=== PATIENT | female | born 1930 | race Caucasian/White ===

== ENCOUNTER 2017-10-01 09:14 | Inpatient (IN) | payer OTHER ==
[~2017-10-01] VITALS: Ht 157.5 cm; Wt 85.9 kg
--- NOTE | ~2017-10-01 | PROC ---
[address] [address] PROCEDURE REPORT Name: ANTHONY CHAVEZ Room: [address] IN .R.#: [id number] Admission: 10/01/17 Attend Phys: Dhaval Hillman MD Discharge: Date of : 31 Report #: [id number] THIS REPORT FOR: //name// For GI report, Please see the Provation report in Perceptive 7 content. By: 0653Medical Records Staff [facility] /ROSE
[~2017-10-01 09:14] MED LIST: FISH OIL 1,001000 M2 PO; GLUCOSAMINE HC500 MG PO; MACRODANTIN100 MG PO; MAXZIDE-25 MG1 EACH PO; MOBIC15 MG PO; MULTIPLE VITAM1 EAC2 PO; PHENERGAN 25 MG25 M1 PO; PRESERVISION T1 EACH PO; SYNTHROID125 MC1 PO
[2017-10-01 09:25] VITALS: BP 140/64
[2017-10-01] MEDS ORDERED: ASPIR 8181 MG PO (09:30)
[2017-10-01] MEDS ORDERED: DICLOFENAC SODI75 MG PO (09:31)
[2017-10-01] MEDS ORDERED: CALCIUM 600 +1 EAC1 PO (09:31)
[2017-10-01 09:50] LABS: HEMATOCRIT 24.1 % (37.0-47.0); HEMOGLOBIN 8.1 gm/dL (12.0-15.0); MCH 31.2 pg (26.0-34.0); MCHC 33.5 g/dL (28.0-37.0); MCV 93.1 fL (80.0-100.0); MPV 8.2 fl. (7.2-11.1); NUCLEATED RBCS 0 /100WBC; PLATELET COUNT* 315 thou/uL (150-400); RBC 2.59 mil/uL (4.20-5.00); RDW-CV 14.4 % (10.5-14.5); WBC 20.8 thou/uL (4.0-11.0)
[2017-10-01 09:59] LABS: CALCIUM 8.9 mg/dL (8.5-10.1); POTASSIUM 3.1 mmol/L (3.5-5.1)
[2017-10-01 10:01] LABS: APTT 23.9 Seconds (25.0-31.3); PROTIME 10.1 Seconds (9.20-11.50)
[2017-10-01 10:05] LABS: TOTAL BILIRUBIN 0.2 mg/dL (<0.1-1.0); TOTAL PROTEIN 6.5 g/dL (6.4-8.2); TROPONIN-I LEVEL 0.08 ng/mL (<0.06)
[2017-10-01 10:41] LABS: ABSOLUTE LYMPHOCYTES 2.9 thou/uL (0.8-5.3); ABSOLUTE MONOCYTES 1.2 thou/uL (0.0-1.2); ABSOLUTE NEUTROPHILS 16.6 thou/uL (1.6-8.1)
[2017-10-01 10:47] LABS: PLATELET ESTIMATE ADEQUATE
[2017-10-01 10:48] LABS: HYPOCHROMASIA Occasional; MACROCYTES Occasional; POLYCHROMASIA Occasional
[2017-10-01 11:56] LABS: URINE BILIRUBIN NEGATIVE (Negative); URINE BLOOD NEGATIVE (Negative); URINE CLARITY CLEAR; URINE COLOR STRAW; URINE GLUCOSE-RANDOM NEGATIVE (Negative); URINE KETONES NEGATIVE (Negative); URINE LEUKOCYTES-REFLEX TRACE (Negative); URINE NITRITE-REFLEX NEGATIVE (Negative); URINE PROTEIN NEGATIVE (Negative); URINE SPECIFIC GRAVITY <= 1.005 (1.005-1.030); URINE UROBILINOGEN 0.2 E.U./dl (0.2-1.0)
[2017-10-01 12:08] LABS: SQUAMOUS 4-10 Moderate /LPF (0-3); URINE RBC 0-2 Rare /HPF (0-2); URINE WBC-REFLEX 0-5 Rare /HPF (0-5)
[2017-10-01 12:09] LABS: BACTERIA-REFLEX 1-9 Few /HPF (None Seen); CASTS None Seen /LPF (None Seen); CRYSTALS None Seen /LPF (None Seen); MUCUS 0-3 Light strn/LPF (None Seen)
[2017-10-01 15:09] VITALS: BP 102/47
--- NOTE | 2017-10-01 16:20 | EKG ---
[place] [address] ELECTROCARDIOGRAM REPORT Name: ANTHONY CHAVEZ Room: [address] IN [facility].#: [id number] Admission: 10/01/17 Attend Phys: Dhaval Hillman MD Discharge: Date of : 31 Report #: [id number] THIS REPORT FOR: //name// [facility] ED Test Date: 2017-10-01 Test Time: 09:30:08 Pat Name: ANTHONY CHAVEZ Department: Room: Gender: F Netbackup Admin: Linda BARRIOS : 1930 Requested By: Oswaldo Khan Order Number: [id number] MD: Mike Corley Measurements Intervals [place] Rate: 90 P: 33 NM: 162 QRS: -18 QRSD: 139 T: 128 QT: 394 QTc: 482 Interpretive Statements Sinus rhythm Multiform ventricular premature complexes Left bundle branch block Compared to ECG 02/26/2015 22:53:53 Ventricular premature complex(es) now present Left bundle-branch block now present Sinus bradycardia no longer present Electronically Signed On 10-01-2017 16:20:37 CDT by Mike Corley [email or web address] <ELECTRONICALLY SIGNED> By: Mike Corley MD, [facility]ATED [facility] 10/01/17 1620 Miek Corley MD, [facility] /EPI
[2017-10-01 20:00] VITALS: BP 103/51
[2017-10-02] VITALS: BP 125/56
[2017-10-02 04:00] VITALS: BP 106/48
[2017-10-02 04:46] LABS: ABSOLUTE BASOPHILS 0.1 thou/uL (0.0-0.2); ABSOLUTE EOSINOPHILS 0.2 thou/uL (0.0-0.7); ABSOLUTE MONOCYTES 0.6 thou/uL (0.0-1.2); ABSOLUTE NEUTROPHILS 6.2 thou/uL (1.6-8.1); BASOPHILS 0.5 %; EOSINOPHILS 1.7 %; LYMPHOCYTES 30.3 %; MCHC 33.9 g/dL (28.0-37.0); MCV 94.5 fL (80.0-100.0); MONOCYTES 5.5 %; MPV 8.2 fl. (7.2-11.1); NUCLEATED RBCS 0 /100WBC; RDW-CV 14.8 % (10.5-14.5)
[2017-10-02 05:04] LABS: PLATELET COUNT* 193 thou/uL (150-400)
[2017-10-02 05:06] LABS: HEMOGLOBIN 5.8 gm/dL (12.0-15.0)
[2017-10-02 05:14] LABS: CALCIUM 7.6 mg/dL (8.5-10.1); CREATININE 0.9 mg/dL (0.6-1.3); POTASSIUM 3.4 mmol/L (3.5-5.1)
[2017-10-02 10:00] VITALS: BP 107/46; BP 114/55; BP 118/51; BP 119/49
--- NOTE | 2017-10-02 14:45 | EKG ---
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: : 1930 Requested By: Oswaldo Khan Order Number: [id number] MD: Ramon Peres Measurements Intervals [place] Rate: 86 P: 21 RI: 141 QRS: -21 QRSD: 130 T: 129 QT: 423 QTc: 506 Interpretive Statements Sinus rhythm Left bundle branch block Compared to ECG 10/01/2017 09:30:08 Ventricular premature complex(es) no longer present Electronically Signed On 10-02-2017 14:45:05 CDT by Ramon Peres [email or web address] <ELECTRONICALLY SIGNED> By: Ramon Peres MD, [facility] 10/02/17 1445 1629 1629 Ramon Peres MD, [facility] /EPI
[2017-10-02 14:46] LABS: HEMATOCRIT 21.7 % (37.0-47.0); HEMOGLOBIN 7.2 gm/dL (12.0-15.0); MCH 30.4 pg (26.0-34.0); MCHC 33.2 g/dL (28.0-37.0); MCV 91.5 fL (80.0-100.0); MPV 7.6 fl. (7.2-11.1); RBC 2.38 mil/uL (4.20-5.00); RDW-CV 16.3 % (10.5-14.5); WBC 7.6 thou/uL (4.0-11.0)
[2017-10-02 15:05] LABS: ALBUMIN 2.5 g/dL (3.4-5.0); CALCIUM 7.5 mg/dL (8.5-10.1); CREATININE 0.8 mg/dL (0.6-1.3); POTASSIUM 3.3 mmol/L (3.5-5.1); TOTAL BILIRUBIN 0.7 mg/dL (<0.1-1.0); TOTAL PROTEIN 5.1 g/dL (6.4-8.2)
[2017-10-02 15:16] VITALS: BP 100/52
[2017-10-02 20:00] VITALS: BP 123/53
[2017-10-03] VITALS (8 sets, daily range): BP systolic 110–155; BP diastolic 52–68
[2017-10-03 04:55] LABS: ABSOLUTE BASOPHILS 0.1 thou/uL (0.0-0.2); ABSOLUTE EOSINOPHILS 0.3 thou/uL (0.0-0.7); ABSOLUTE LYMPHOCYTES 2.2 thou/uL (0.8-5.3); ABSOLUTE MONOCYTES 0.4 thou/uL (0.0-1.2); ABSOLUTE NEUTROPHILS 4.1 thou/uL (1.6-8.1); BASOPHILS 0.8 %; HEMATOCRIT 21.4 % (37.0-47.0); HEMOGLOBIN 7.7 gm/dL (12.0-15.0); LYMPHOCYTES 31.3 %; MCH 32.8 pg (26.0-34.0); MCV 91.1 fL (80.0-100.0); MONOCYTES 5.5 %; NUCLEATED RBCS 0 /100WBC; PLATELET COUNT* 199 thou/uL (150-400); POLYS 58.4 %; RBC 2.35 mil/uL (4.20-5.00); RDW-CV 17.3 % (10.5-14.5); WBC 7.1 thou/uL (4.0-11.0)
[2017-10-03 05:05] LABS: PREALBUMIN 28.8 mg/dL (18.0-35.7)
[2017-10-03 05:08] LABS: ALBUMIN 2.4 g/dL (3.4-5.0); CALCIUM 7.4 mg/dL (8.5-10.1); CREATININE 0.8 mg/dL (0.6-1.3); POTASSIUM 3.5 mmol/L (3.5-5.1); TOTAL BILIRUBIN 0.4 mg/dL (<0.1-1.0); TOTAL PROTEIN 5.1 g/dL (6.4-8.2)
[2017-10-04] VITALS: BP 130/47
[2017-10-04 04:00] VITALS: BP 142/57
[2017-10-04 04:26] LABS: ABSOLUTE EOSINOPHILS 0.4 thou/uL (0.0-0.7); ABSOLUTE LYMPHOCYTES 2.5 thou/uL (0.8-5.3); ABSOLUTE MONOCYTES 0.4 thou/uL (0.0-1.2); ABSOLUTE NEUTROPHILS 4.6 thou/uL (1.6-8.1); BASOPHILS 0.5 %; EOSINOPHILS 4.5 %; HEMATOCRIT 23.4 % (37.0-47.0); HEMOGLOBIN 7.9 gm/dL (12.0-15.0); LYMPHOCYTES 31.6 %; MCHC 33.8 g/dL (28.0-37.0); MCV 91.6 fL (80.0-100.0); MONOCYTES 5.2 %; MPV 8.3 fl. (7.2-11.1); NUCLEATED RBCS 0 /100WBC; PLATELET COUNT* 243 thou/uL (150-400); POLYS 58.2 %; RBC 2.55 mil/uL (4.20-5.00); RDW-CV 16.6 % (10.5-14.5); WBC 7.8 thou/uL (4.0-11.0)
[2017-10-04 04:36] LABS: ALBUMIN 2.6 g/dL (3.4-5.0); CALCIUM 7.4 mg/dL (8.5-10.1); CREATININE 0.9 mg/dL (0.6-1.3); TOTAL BILIRUBIN 0.4 mg/dL (<0.1-1.0); TOTAL PROTEIN 5.7 g/dL (6.4-8.2)
[2017-10-04 04:41] LABS: PREALBUMIN 29.1 mg/dL (18.0-35.7)
[2017-10-04 05:02] LABS: POTASSIUM 2.9 mmol/L (3.5-5.1)
[2017-10-04 09:00] VITALS: BP 147/62
[2017-10-04] MEDS ORDERED: PROTONIX40 M1 PO (09:14)
[2017-10-04] MEDS ORDERED: ZANTAC 150MG T150 MG PO (09:23)
[2017-10-04 09:28] VITALS: BP 142/57
[2017-10-04 10:42] VITALS: BP 142/57
--- NOTE | 2017-10-15 08:22 | CON ---
[address] [address] CONSULTATION Name: ANTHONY CHAVEZ Room: [address] IN M.R.#: [id number] Admission: 10/01/17 Attend Phys: Dhaval Hillman MD Discharge: 10/04/17 Date of : 31 Report #: [id number] THIS REPORT FOR: //name// CC: Dhaval Aaron Davis DATE OF SERVICE: 10/02/2017 ADDENDUM I personally seen and examined the patient and reviewed labs and imaging. The patient who reports usage of NSAID, diclofenac presents with melanotic stool and hematemesis. Hemoglobin also was 5.8 and after transfusion it is 7.2. The patient is currently on IV Protonix. We will continue monitoring H and H and if it drops below 7, we will transfuse. We will schedule her for an upper endoscopy and make further recommendation after the scope. <ELECTRONICALLY SIGNED> By: Mariajose Whelan MD 10/15/17 0822 1930 0108Mariajose Whelan MD /nt
--- NOTE | 2017-10-15 08:22 | CON ---
[address] [address] CONSULTATION Name: ANTHONY CHAVEZ Room: [address]#: [id number] Admission: 10/01/17 Attend Phys: Dhaval Hillman MD Discharge: 10/04/17 Date of : 31 Report #: [id number] THIS REPORT FOR: //name// CC: Dhaval Davis DO DICTATED BY: Frances Samuel [facility] DATE OF SERVICE: 10/02/2017 PRIMARY CARE PHYSICIAN: Galen Davis DO Please note at the time of this dictation, the patient was seen and physically examined by myself. REASON FOR CONSULTATION: Melanotic stool and hematemesis. HISTORY OF THE PRESENT ILLNESS: This is an 87-year-old female who started having issues with nausea and vomiting in which she had an episode of vomiting that was black coffee ground material. She also then later noted that she had black stools. She had another episode yesterday morning prior to her coming to the hospital for further evaluation. The patient states that she has been taking diclofenac regularly for years for her arthritis and has not had any since her first episode of vomiting. The patient states she has had colonoscopies many years ago, but cannot remember when or where. ALLERGIES: SULFA. MEDICATIONS: From home include diclofenac, Caltrate, aspirin, multivitamin, fish oil, glucosamine, triamterene, levothyroxine, and Macrodantin. PAST MEDICAL HISTORY: Hypertension, arthritis. PAST SURGICAL HISTORY: Thyroid and carpal tunnel. FAMILY HISTORY: Negative for any GI or female cancers. SOCIAL HISTORY: Denies any alcohol, tobacco or illegal drug use. REVIEW OF SYSTEMS: Twelve-point review of systems is essentially negative except what is mentioned in the HPI. PHYSICAL EXAMINATION: VITAL SIGNS: Temperature 36.8, pulse 72, respirations 17, blood pressure 106/48[place] [address] CONSULTATION Name: ANTHONY CHAVEZ Room: [address]#: [id number] Admission: 10/01/17 Attend Phys: Dhaval Hillman MD Discharge: 10/04/17 Date of : 31 Report #: [id number] HEART: Regular rate and rhythm. LUNGS: Clear. ABDOMEN: Soft, positive bowel sounds in all 4 quadrants with no masses or tenderness noted. LABORATORY DATA: Hemoglobin on admission was 5.8, on admission, she was 8.1 and she has dropped down to 5.8 and she has received a unit of blood, hematocrit is 17, white count is 10, platelets 193. Sodium 143, potassium 3.4, chloride 109, CO2 of 26, BUN is 24, creatinine 0.2, GFR is 59, and glucose is 85. CT of the abdomen and pelvis shows colonic diverticulosis, otherwise negative. IMPRESSION: 1. Hematemesis. 2. Melanotic stool. 3. Acute anemia. 4. Chronic NSAID use. PLAN: 1. EGD either later today or tomorrow depending on the schedule. 2. If she does not have it today, she can have clear liquids. 3. CBC, CMP in the a.m. 4. Continue the Protonix IV b.i.d. and will also add a ferritin to her labs as well. Thank you for allowing us to participate in this patient's care. Please do not hesitate to call with any questions in regard to this consult. ADDENDUM I personally seen and examined the patient and reviewed labs and imaging. The patient who reports usage of NSAID, diclofenac presents with melanotic stool and hematemesis. Hemoglobin also was 5.8 and after transfusion it is 7.2. The patient is currently on IV Protonix. We will continue monitoring H and H and if it drops below 7, we will transfuse. We will schedule her for an upper endoscopy and make further recommendation after the scope. <ELECTRONICALLY SIGNED> By: Mariajose Whelan MD 10/15/17 0822 1346 [id number] Whelan MD /nt
--- NOTE | 2018-02-05 11:34 | PATH ---
[address] [address] PATHOLOGY RPT PROCEDURE Name: ANTHONY CHAVEZ Room: [address] IN M.R.#: [id number] Admission: 10/01/17 Date of : 31 Discharge: 10/04/17 Report #: [id number] Path Case #: [id number] [facility] Accession Number: [id number] . 01 Material submitted: . PART A: ANTRAL BIOPSY FOR H. PYLORI PART B: ESOPHAGEAL BIOPSY AT 36CM R/O KHAN'S . 02 Diagnosis: A. Antral biopsy (for H. 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 . B. Esophageal biopsy at 36 cm (rule out Khan's): - Benign esophageal and Khan's types mucosa with mild chronic inflammation typical of reflux, negative for dysplasia. (MAHENDRA:db; 10/05/2017) LBQ/10/05/2017 . 02 Comment: Special stain on A: H. pylori immuno . . This case was prepared and proofread by Dr. Braulio Pal and electronically released by Dr. Irena Salinas. . 02 Electronically signed: . Irena Salinas MD, Pathologist NPI- [id number] . 01 Gross description: . A. Received in formalin labeled "Brendon, biopsy antrum for H. pylori" and consists of 2 soft fink tissue fragments each averaging 0.3 cm which are entirely submitted as A1. . B. Received in formalin labeled "Brendon, esophageal BX at 36 cm-Khan's" and consists of a 0.3 cm translucent tissue fragment which is entirely submitted as B1. (JACKIE; 10/04/2017) JBR/JBR . 02 Pathologist provided ICD-10: K29.50, K22.70 . 02 CPT . 098686, 386390, L06066 Specimen Comment: A duplicate report has been generated [place] [address] PATHOLOGY RPT PROCEDURE Name: ANTHONY CHAVEZ Room: [address] IN M.R.#: [id number] Admission: 10/01/17 Date of : 31 Discharge: 10/04/17 Report #: [id number] Path Case #: [id number] Performed at: [address], [place], [place] [id number] MD Boris Lay MD Phone: [phone] Performed at: [address] [id number] MD Irena Salinas MD Phone: [phone]
== END 2017-10-04 11:18 | disposition home or self-care (01) | DRG 811 ==
LOC: M.ERS 09:14 → M.TBA-ER 12:19 → M.2W 12:19
PROVIDERS: Family Medicine; Nurse Practitioner Adult Health; ADMIT Internal Medicine
PROC: 30233N1 Transfusion of Nonautologous Red Blood Cells into Peripheral Vein, Percutaneous Approach (ICD-10-PCS; principal; 2017-10-02)
PROC: 0DB58ZX Excision of Esophagus, Via Natural or Artificial Opening Endoscopic, Diagnostic (ICD-10-PCS; 2017-10-03)
PROC: 0DB68ZX Excision of Stomach, Via Natural or Artificial Opening Endoscopic, Diagnostic (ICD-10-PCS; 2017-10-03)
DX: D62 Acute posthemorrhagic anemia (principal); K25.4 Chronic or unspecified gastric ulcer with hemorrhage; E44.1 Mild protein-calorie malnutrition; I10 Essential (primary) hypertension; M19.90 Unspecified osteoarthritis, unspecified site; E86.0 Dehydration; K20.9 Esophagitis, unspecified; K44.9 Diaphragmatic hernia without obstruction or gangrene; Z88.2 Allergy status to sulfonamides; Z79.1 Long term (current) use of non-steroidal anti-inflammatories (NSAID); Z68.34 Body mass index [BMI] 34.0-34.9, adult

== ENCOUNTER 2017-10-09 08:14 | Emergency (ER) | payer OTHER ==
[~2017-10-09] VITALS: Ht 157.5 cm; Wt 80.7 kg
[~2017-10-09 08:14] MED LIST changes: +ASPIR 8181 MG PO; +CALCIUM 600 +1 EAC1 PO; +DICLOFENAC SODI75 MG PO; +PROTONIX40 M1 PO; +ZANTAC 150MG T150 MG PO
[2017-10-09] MEDS ORDERED: PRESERVISION A1 EAC2 PO (08:24)
[2017-10-09 08:47] LABS: ABSOLUTE EOSINOPHILS 0.2 thou/uL (0.0-0.7); ABSOLUTE LYMPHOCYTES 1.7 thou/uL (0.8-5.3); ABSOLUTE MONOCYTES 0.5 thou/uL (0.0-1.2); ABSOLUTE NEUTROPHILS 3.9 thou/uL (1.6-8.1); BASOPHILS 0.6 %; EOSINOPHILS 3.5 %; HEMATOCRIT 29.7 % (37.0-47.0); LYMPHOCYTES 27.2 %; MCH 30.8 pg (26.0-34.0); MCHC 33.7 g/dL (28.0-37.0); MCV 91.4 fL (80.0-100.0); MONOCYTES 8.2 %; MPV 7.5 fl. (7.2-11.1); NUCLEATED RBCS 0 /100WBC; PLATELET COUNT* 430 thou/uL (150-400); POLYS 60.5 %; RBC 3.25 mil/uL (4.20-5.00); RDW-CV 16.5 % (10.5-14.5); WBC 6.4 thou/uL (4.0-11.0)
[2017-10-09 08:54] LABS: CALCIUM 9.1 mg/dL (8.5-10.1); CREATININE 0.9 mg/dL (0.6-1.3); POTASSIUM 3.3 mmol/L (3.5-5.1)
[2017-10-09 08:58] LABS: ALBUMIN 3.4 g/dL (3.4-5.0); TOTAL BILIRUBIN 0.5 mg/dL (<0.1-1.0)
[2017-10-09 09:58] LABS: URINE BILIRUBIN NEGATIVE (Negative); URINE BLOOD NEGATIVE (Negative); URINE CLARITY CLEAR; URINE COLOR YELLOW; URINE GLUCOSE-RANDOM NEGATIVE (Negative); URINE KETONES NEGATIVE (Negative); URINE LEUKOCYTES-REFLEX TRACE (Negative); URINE NITRITE-REFLEX NEGATIVE (Negative); URINE PROTEIN NEGATIVE (Negative); URINE UROBILINOGEN 0.2 E.U./dl (0.2-1.0)
[2017-10-09 10:07] LABS: BACTERIA-REFLEX None Seen /HPF (None Seen); CASTS None Seen /LPF (None Seen); CRYSTALS None Seen /LPF (None Seen); MUCUS None Seen strn/LPF (None Seen); SQUAMOUS 0-3 Few /LPF (0-3); URINE RBC None Seen /HPF (0-2); URINE WBC-REFLEX 0-5 Rare /HPF (0-5)
[2017-10-09 10:45] VITALS: BP 129/59
== END 2017-10-09 10:45 | disposition home or self-care (01) ==
LOC: M.ERS 08:14
PROVIDERS: Personal Emergency Response Attendant
DX: K92.2 Gastrointestinal hemorrhage, unspecified (principal); I10 Essential (primary) hypertension; M19.90 Unspecified osteoarthritis, unspecified site; Z88.2 Allergy status to sulfonamides

== ENCOUNTER → 2017-12-31 | Outpatient (CLI) | payer OTHER ==
[~2017-12-31] MED LIST changes: +PRESERVISION A1 EAC2 PO
== END ==
LOC: M.LAB 06:23
DX: Z01.812 Encounter for preprocedural laboratory examination (principal); I10 Essential (primary) hypertension

== ENCOUNTER 2021-03-29 12:48 | Inpatient (IN) | payer OTHER ==
[~2021-03-29] VITALS: Ht 152.4 cm; Wt 68.0 kg
--- NOTE | ~2021-03-29 | PROC ---
[address] [address] PROCEDURE REPORT Name: ANTHONY CHAVEZ Room: [address] IN M.R.#: [id number] Admission: 03/29/21 Attend Phys: Dhaval Hillman MD Discharge: Date of : 31 Report #: [id number] THIS REPORT FOR: cc: Galen Davis John E. DO [facility],Medical Records Staff ~ For GI report, please see the Provation report in Perceptive 7 content. By: 0703Medical Records Staff [facility] /ROSE
[2021-03-29 13:07] VITALS: BP 101/45
[2021-03-29] MEDS ORDERED: OSTEO BI-FLEX1 EAC1 PO (13:19)
[2021-03-29] MEDS ORDERED: SUPER THERAVIT1 EACH PO (13:19)
[2021-03-29] MEDS ORDERED: FISH OIL 1,0001 EAC9 PO (13:19)
[2021-03-29] MEDS ORDERED: CALCIUM500 MG PO (13:20)
[2021-03-29] MEDS ORDERED: MACROBID 100 M100 MG PO (13:21)
[2021-03-29] MEDS ORDERED: ARICEPT10 M1 PO (13:22)
[2021-03-29] MEDS ORDERED: LIPITOR 20 MG T20 M1 PO (13:22)
[2021-03-29] MEDS ORDERED: NAMENDA 10 MG T10 MG PO (13:22)
[2021-03-29 13:49] LABS: ABSOLUTE BASOPHILS 0.1 thou/uL (0.0-0.2); ABSOLUTE EOSINOPHILS 0.1 thou/uL (0.0-0.7); ABSOLUTE LYMPHOCYTES 1.5 thou/uL (0.8-5.3); ABSOLUTE MONOCYTES 0.6 thou/uL (0.0-1.2); ABSOLUTE NEUTROPHILS 13.1 thou/uL (1.6-8.1); BASOPHILS 0.5 %; EOSINOPHILS 0.4 %; LYMPHOCYTES 9.8 %; MCH 29.2 pg (26.0-34.0); MCHC 32.3 g/dL (28.0-37.0); MCV 90.5 fL (80.0-100.0); MONOCYTES 3.7 %; MPV 7.7 fl. (7.2-11.1); NUCLEATED RBCS 0 /100WBC; PLATELET COUNT* 355 thou/uL (150-400); POLYS 85.6 %; RBC 1.98 mil/uL (4.20-5.00); RDW-CV 14.4 % (10.5-14.5); WBC 15.3 thou/uL (4.0-11.0)
[2021-03-29 13:58] LABS: HEMOGLOBIN 5.8 gm/dL (12.0-15.0)
[2021-03-29 14:00] LABS: CALCIUM 8.8 mg/dL (8.5-10.1); CREATININE 1.1 mg/dL (0.6-1.3); HEMATOCRIT 17.9 % (37.0-47.0); POTASSIUM 3.5 mmol/L (3.5-5.1)
[2021-03-29 14:04] LABS: ALBUMIN 2.3 g/dL (3.4-5.0); TOTAL BILIRUBIN 0.2 mg/dL (<0.1-1.0); TOTAL PROTEIN 6.5 g/dL (6.4-8.2)
--- NOTE | 2021-03-29 15:48 | EKG ---
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 : 1930 Requested By: Oswaldo Khan Order Number: [id number] MD: Ramon Peres Measurements Intervals [place] Rate: 84 P: 54 VA: 161 QRS: -18 QRSD: 134 T: 119 QT: 435 QTc: 515 Interpretive Statements Sinus rhythm Ventricular bigeminy Left bundle branch block Compared to ECG 10/01/2017 16:29:52 Ventricular premature complex(es) now present Electronically Signed On 03-29-2021 15:48:02 DATABASE TESTER by Ramon Peres [email or web address] <ELECTRONICALLY SIGNED> By: Ramon Peres MD, FACC 03/29/21 1548 1337 1337 Ramon Peres MD, FACC /EPI
[2021-03-29 18:00] VITALS: BP 109/53
[2021-03-29 21:08] LABS: HEMATOCRIT 20.8 % (37.0-47.0); MCH 29.6 pg (26.0-34.0); MCHC 32.5 g/dL (28.0-37.0); MPV 7.7 fl. (7.2-11.1); RBC 2.28 mil/uL (4.20-5.00); RDW-CV 15.4 % (10.5-14.5); WBC 13.9 thou/uL (4.0-11.0)
[2021-03-29 21:11] LABS: HEMOGLOBIN 6.8 gm/dL (12.0-15.0)
[2021-03-29 22:00] VITALS: BP 121/64
[2021-03-30] VITALS (9 sets, daily range): BP systolic 98–132; BP diastolic 46–63
[2021-03-30 06:40] LABS: ABSOLUTE EOSINOPHILS 0.1 thou/uL (0.0-0.7); ABSOLUTE MONOCYTES 0.9 thou/uL (0.0-1.2); ABSOLUTE NEUTROPHILS 11.8 thou/uL (1.6-8.1); BASOPHILS 0.2 %; HEMATOCRIT 23.8 % (37.0-47.0); HEMOGLOBIN 7.9 gm/dL (12.0-15.0); LYMPHOCYTES 13.7 %; MCH 29.3 pg (26.0-34.0); MCHC 33.1 g/dL (28.0-37.0); MCV 88.5 fL (80.0-100.0); MONOCYTES 5.8 %; MPV 7.9 fl. (7.2-11.1); NUCLEATED RBCS 0 /100WBC; PLATELET COUNT* 279 thou/uL (150-400); POLYS 79.3 %; RBC 2.69 mil/uL (4.20-5.00); RDW-CV 15.1 % (10.5-14.5); WBC 14.9 thou/uL (4.0-11.0)
[2021-03-30 07:09] LABS: CALCIUM 7.7 mg/dL (8.5-10.1); CREATININE 0.9 mg/dL (0.6-1.3); POTASSIUM 3.4 mmol/L (3.5-5.1)
--- NOTE | 2021-03-30 07:58 | NUR ---
PATIENT HAS SLEPT OFF AND ON DURING THE NIGHT. VSS ON RA. MEDICATIONS GIVEN ORDERED AND CHARTED. PATIENT CONFUSED AND AGITATED AT TIMES. PATIENT HAS BEEN INCONTINENT OF BOWELS AND HAS HAD MULTIPLE RUNNY BOWEL MOVEMENTS AND ELLY CARE PERFORMED AND BARRIER CREAM APPLIED TO ELLY AREA AND BUTTOCKS. PATIENT GETS AGITATED AND YELLS AT TIMES AND REFUSES TO BE CLEANED AFTER INCONTINENT EPISODES, BUT TECH AND NURSE SPOKE WITH PATIENT AND ENCOURAGED HER TO LET US CLEAN HER. IV IN LEFT AC WITH FLUIDS RUNNING. FALL PRECAUTIONS IN PLACE AND BED ALARM ON. REPORT GIVEN TO DAY SHIFT ER NURSE THIS AM. NURSING TO CONTINUE MONITORING.
--- NOTE | 2021-03-30 08:24 | NUR ---
PATIENT SLEPT OFF AND ON DURING THE NIGHT. VSS ON RA. MEDICATIONS GIVEN ORDERED AND CHARTED. PATIENT GIVEN ONE UNIT OF BLOOD DURING SHIFT D/T LOW HGB OF 6.[address] DAVILA. HGB REDRAWN AND IS NOW 7.9. PATIENT REMAINS NPO. IV IN RIGHT HAND. GI CONSULT CALLED DURING SHIFT. PATIENT UP WITH ASSIST X 1 TO THE BATHROOM. PATIENT INSTRUCTED TO USE CALL LIGHT WHEN NEEDING ASSISTANCE. HOURLY ROUNDS MADE. NURSING TO CONTINUE MONITORING.
--- NOTE | 2021-03-30 14:45 | NUR ---
Admission Assessment Obtained Info from patient Admitted from Home Mental Status upon admission Alert & Oriented x 3 Pt lives with spouse in Dtrs home Can patient return to prior living arrangements? Yes Support system: Name & Relationship Zahira Hinojosa Cell Phone number [phone] Activities of daily living: Independent ADLs, Dtr drives couple to appts Dtr help with any other cares as needed Assistive device: Cane Walker Shower Chair Prior resource use: None Prior post hospitalization care Hx: No ARU hx No SNU hx- No HH hx-declined need at this time.
[2021-03-30] MEDS ORDERED: DICLOFENAC PO (17:31)
[2021-03-30] MEDS ORDERED: OSTEO BI-FLEX1 EAC1 PO (17:32)
[2021-03-30] MEDS ORDERED: PRESERVISION A1 EAC2 PO (17:32)
--- NOTE | 2021-03-30 18:29 | NUR ---
REPORT RECIEVED PER LIZBET, RN IN PACU POST EGD AT 1659-PT ARRIVED TO ROOM 230 VIA BED AT 1715- CARDIAC MONIOTR PLACED ORDERED, TRACING SR/BBB- IV NOTED TO RIGHT HAND AND LEFT AC INTACT AND SL- PT A&O X2, NOTED CONFUSSION WITH DEMENTIA DIAGNOSIS PER DAUGHTER- PRIOR ASSESSMENT REVIEWED AND THIS NURSE AGREES- K+ NOTED AT 3.4, ELECTROLYTE PROTOCOL OBTAINED FOR REPLACEMENT- BM REPORTED 03/29/21- VSS, O2 SAT 99% ON RA- PT DENIES ANY C/O PAIN- CALL LIGHT AND PERSONAL BELONGINGS WITH IN REACH- FALL PRECAUTIONS IN PLACE INDICATED- HOURLY ROUNDS IN PLACE R/T SAFETY/NEEDS- ALL NEEDS MET AT THIS TIME
--- NOTE | 2021-03-31 04:08 | NUR ---
ASSUMED CARE OF PT AT 1900. PT IS ALERT AND ORIENTED. VSS. PERRLA. NO COMPLAINTS OF PAIN. PT IS IN SINUS RYTHM ON THE TELEMETRY. PT IS RESTING COMFORTABLY IN BED. RESPIRATIONS ARE EVEN AND NONLABORED. WILL CONTINUE TO MONITOR PT.
[2021-03-31 04:53] LABS: HEMATOCRIT 21.8 % (37.0-47.0); HEMOGLOBIN 7.3 gm/dL (12.0-15.0); MCH 29.6 pg (26.0-34.0); MCHC 33.4 g/dL (28.0-37.0); MCV 88.8 fL (80.0-100.0); RBC 2.45 mil/uL (4.20-5.00); WBC 7.5 thou/uL (4.0-11.0)
[2021-03-31 05:13] LABS: ALBUMIN 1.9 g/dL (3.4-5.0); CALCIUM 7.7 mg/dL (8.5-10.1); CREATININE 0.8 mg/dL (0.6-1.3); POTASSIUM 3.1 mmol/L (3.5-5.1); TOTAL BILIRUBIN 0.3 mg/dL (<0.1-1.0); TOTAL PROTEIN 5.5 g/dL (6.4-8.2)
--- NOTE | 2021-03-31 07:05 | NUR ---
CHANGE OF SHIFT REPORT GIVEN PATIENT SEEN AT BEDSIDE, IN BED RESTING ASSUMED PATIENT CARE
[2021-03-31 08:00] VITALS: BP 125/54
[2021-03-31 12:00] VITALS: BP 149/56
--- NOTE | 2021-03-31 13:59 | NUR ---
PLAN OF CARE: PHYSICIAN INFORMS OF PLAN FOR PT TO BE READY TO POSSIBLY D/C TOMORROW PENDING UROLOGY CONSULT AND RECOMMENDATIONS. PT MAY BENEFIT FROM HH AT D/C. CM WILL REMAIN AVAILABLE TO ASSIST AND FOLLOW NEEDED.
[2021-03-31 16:00] VITALS: BP 123/55
--- NOTE | 2021-03-31 18:53 | CON ---
[address] [address] CONSULTATION Name: ANTHONY CHAVEZ Room: [address] IN .R.#: [id number] Admission: 03/29/21 Attend Phys: Dhaval Hillman MD Discharge: Date of : 31 Report #: [id number] THIS REPORT FOR: cc: Galen Davis John E. DO Namin, Farid M. MD ~ cc: Galen Davis DO DATE OF CONSULTATION: 03/30/2021 Please note at the time of this dictation, the patient was seen and physically examined by myself. REASON FOR CONSULTATION: Melanotic stool, acute anemia. HISTORY OF PRESENT ILLNESS: This is a pleasant 89-year-old female who presented to the Emergency Room with chief complaint of having black stools that she noted the day before admission. She states this had continued prompting her to come in to be seen. Prior to all of this, she states that she has been noticing that she has been feeling a lot more fatigued and not having a lot of energy prior to her admission. She states she denies any fever, chills, any nausea or vomiting. She did state that she had a little bit of some upper abdominal discomfort, but nothing significant. The patient does admit to taking ibuprofen for her arthritis; however, in looking at her daughter corrected and said she is only taking Tylenol. The patient lives with her daughter and her currently. She states that she does not have any issues with acid reflux, but only once in a while. She did have an EGD with us back in 2018, in which she had grade C esophagitis. She had a nonbleeding gastric ulcer that was related to diclofenac use at that time and advised not to take anymore NSAIDs. She had a 4 cm hiatal hernia and at that time she was treated with APC. Last colonoscopy unclear. The patient states normally though her bowels move daily, soft and formed up until the day before admission, did she states that they were black in nature. ALLERGIES: SULFA. MEDICATIONS FROM HOME: Aspirin, fish oil, multivitamin, Maxzide, Synthroid, Namenda, Aricept, Lipitor, Macrobid, calcium, fish oil and PreserVision. PAST MEDICAL HISTORY: Acute anemia, hypertension, carpal tunnel, arthritis. PAST SURGICAL HISTORY: She has had thyroid surgery. FAMILY HISTORY: Negative for any GI or female cancers. SOCIAL HISTORY: She denies any alcohol, tobacco or illegal [place] [address] CONSULTATION Name: SCOTTANTHONY Harley Room: [address] IN [facility]#: [id number] Admission: 03/29/21 Attend Phys: Dhaval Hillman MD Discharge: Date of : 31 Report #: [id number] does live with her daughter and . REVIEW OF SYSTEMS: Twelve-point review of systems is essentially negative except what is mentioned in the HPI. PHYSICAL EXAMINATION: VITAL SIGNS: Temperature 36.8, pulse 85, respirations 13, blood pressure 128/53. HEART: Regular rate and rhythm. LUNGS: Diminished, but clear. ABDOMEN: Soft, positive bowel sounds in all 4 quadrants with some slight tenderness noted in the upper quadrant. LABORATORY DATA: Hemoglobin on admission was 5.8, the patient received 2 units of blood, bringing her hemoglobin up to 7.9 this morning; white count is 14.9; platelets 279. BUN on admission was 47, she is down to 32 with a GFR of 59. CTA showed moderate circumferential wall thickening of the gastric outlet and the first portion of the duodenum, also was noted she had a right renal mass. IMPRESSION: 1. Acute anemia. 2. Melanotic stool. 3. Abnormal CT. 4. Extreme fatigue. 5. Leukocytosis. 6. Some dementia. PLAN: 1. EGD today with Dr. Whelan. 2. Continue Protonix drip. 3. Transfuse to keep her hemoglobin greater than 7. 4. Check iron studies, ferritin, B12 and folate. 5. Further recommendations to be made after Dr. Whelan sees the patient later today. Thank you for allowing us to participate in this patient's care. Please do not hesitate to call with any questions regarding this consult. <ELECTRONICALLY SIGNED> By: Mariajose Whelan MD 03/31/21 1853 0749 [id number] Whelan MD /nt
[2021-03-31 20:00] VITALS: BP 119/55
--- NOTE | 2021-03-31 20:00 | NUR ---
RECEIVED REPORT AND ASSUMED CARE OF PT, ASSESSMENT COMPLETED. PT VERY PLEASANT. ASSISTED TO BR WITH SBA AND WALKER. DENIES SYNCOPAL FEELINGS. TELEMETRY ON SHOWING SR. WILL CONT TO MONITOR AND ASSIST NEEDED.
[2021-04-01 01:22] VITALS: BP 133/64
[2021-04-01 04:34] LABS: ABSOLUTE EOSINOPHILS 0.6 thou/uL (0.0-0.7); ABSOLUTE LYMPHOCYTES 1.8 thou/uL (0.8-5.3); ABSOLUTE MONOCYTES 0.4 thou/uL (0.0-1.2); ABSOLUTE NEUTROPHILS 4.5 thou/uL (1.6-8.1); BASOPHILS 0.6 %; EOSINOPHILS 7.6 %; HEMATOCRIT 24.8 % (37.0-47.0); HEMOGLOBIN 8.2 gm/dL (12.0-15.0); LYMPHOCYTES 24.8 %; MCH 29.3 pg (26.0-34.0); MCV 88.9 fL (80.0-100.0); MPV 7.1 fl. (7.2-11.1); NUCLEATED RBCS 0 /100WBC; PLATELET COUNT* 327 thou/uL (150-400); RBC 2.79 mil/uL (4.20-5.00); RDW-CV 15.2 % (10.5-14.5); WBC 7.4 thou/uL (4.0-11.0)
[2021-04-01 04:53] LABS: ALBUMIN 2.1 g/dL (3.4-5.0); CALCIUM 8.2 mg/dL (8.5-10.1); CREATININE 0.7 mg/dL (0.6-1.3); POTASSIUM 3.4 mmol/L (3.5-5.1); TOTAL BILIRUBIN 0.3 mg/dL (<0.1-1.0); TOTAL PROTEIN 5.9 g/dL (6.4-8.2)
[2021-04-01 05:21] VITALS: BP 136/62
--- NOTE | 2021-04-01 05:45 | NUR ---
SLEPT WELL TONIGHT. ASSISTED TO AND FROM BR. TELEMETRY CONT TO SHOW SR. NO CHANGE IN ASSESSMENT.
[2021-04-01 08:00] VITALS: BP 137/62
--- NOTE | 2021-04-01 08:00 | NUR ---
ASSUMED CARE OF PT AT 0730. PT A&0X4, DENIES ANY PAIN OR SHORTNESS OF BREATH AT THIS TIME. TRACING SR WITH BBB ON THE SUPERINTENDENT MAINTENANCE AIRPORTS. ON RA SAT UPPER 90'S. PT UP WITH 1 ASSIST AND WALKER TO BATHROOM. PT GOAL FOR TODAY IS ADVANCE DIET TO REGULAR AND DISCHARGE PLANNING TO HOME. AM ASSESSMENT CHARTED. MEDICATIONS PER JUL. PT REPOSITIONS SELF WITH REMINDERS. HOURLY ROUNDING OBSERVED. BED IN LOW POSITION. CALL LIGHT WITHIN REACH. WILL CONTINUE PLAN OF CARE.
[2021-04-01] MEDS ORDERED: PROTONIX40 M2 PO (10:21)
[2021-04-01] MEDS ORDERED: CARAFATE 1 GM TA1 G1 PO (10:21)
[2021-04-01 11:06] VITALS: BP 137/62
[2021-04-01 12:11] VITALS: BP 137/62
--- NOTE | 2021-04-01 13:17 | NUR ---
DISCHARGE ORDERS RECEIVED. DISCHARGE INSTRUCTIONS, CARE NOTES, E SCRIPTS AND FOLLOW UP APPTS GIVEN TO PT. PT COMMUNICATES UNDERSTANDING OF DISCHARGE TEACHING. IV AND CARDIAC MONTIOR REMOVED. PT DISCHARGED WITH ALL BELONGINGS AND PAPERWORK VIA WHEELCHAIR WITH NURSING STAFF TO DAUGHTER OWN PERSONAL VEHICLE. PT REFUSED HOME HEALTH. EDUCATION GIVEN.
--- NOTE | 2021-04-01 16:27 | NUR ---
LATE ENTTRY: PT D/C'D HOME WITH SELF-CARE, THE PT DECLINED HH. CM EDUCATED AND INFORMED PT OF THE BENEFITS OF HH. PT CONTINUED TO DECLINE. CM WILL REMAIN AVAILABLE TO ASSIST AND FOLLOW NEEDED.
--- NOTE | 2021-04-04 14:07 | PATH ---
[address] [address] PATHOLOGY RPT PROCEDURE Name: ANTHONY CHAVEZ Room: [address] IN .R.#: [id number] Admission: 03/29/21 Date of : 31 Discharge: 04/01/21 Report #: [id number] Path Case #: [id number] [facility] Accession Number: [id number] . 01 Material submitted: . stomach - ANTRAL ULCER . 01 Clinical history: . EGD IN OR . 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 . (MAHENDRA:mm; 04/01/2021) [facility] 04/01/2021 1648 Local . 02 Comment: Special stain: H. pylori immuno . (MAHENDRA:mml; 04/01/2021) . 02 Electronically signed: . Braulio Pal MD, Pathologist NPI- [id number] . 01 Gross description: . The specimen is received in formalin, labeled "BrendonAnthony, antral ulcer". Received are 3 segments of pale fink tissue ranging in size from 0.2 cm to 0.6 cm in maximum dimensions. The specimen is submitted entirely in cassette A1.([facility]; 03/31/2021) [facility] 04/01/2021 1644 Local . 02 Pathologist provided ICD-10: K29.50 . 02 CPT . 458532, U71183 Specimen Comment: A courtesy copy of this report has been sent to [phone], [phone] Specimen Comment: [phone], Specimen Comment: Report sent to , DR METCALF / DR DAVIAL Performed at: [address] [id number] MD Renzo Kohli MD Phone: [phone] [place] [address] PATHOLOGY RPT PROCEDURE Name: ANTHONY CHAVEZ Room: [address] IN M.R.#: [id number] Admission: 03/29/21 Date of : 31 Discharge: 04/01/21 Report #: [id number] Path Case #: [id number] Performed at: 02 [facility] [address], [place], [place] [id number] MD Braulio Pal MD Phone: [phone]
== END 2021-04-01 13:19 | disposition home or self-care (01) | DRG 377 ==
LOC: M.ERS 12:48 → M.TBA-ER 14:07 → M.2W 14:07 → M.TBA-ER 03-30 15:42 → M.2W 03-30 17:03
PROVIDERS: Family Medicine; Nurse Practitioner Adult Health; ADMIT Internal Medicine; ATTEND Internal Medicine
PROC: 30233N1 Transfusion of Nonautologous Red Blood Cells into Peripheral Vein, Percutaneous Approach (ICD-10-PCS; principal; 2021-03-29)
PROC: 0DB68ZX Excision of Stomach, Via Natural or Artificial Opening Endoscopic, Diagnostic (ICD-10-PCS; 2021-03-30)
DX: K25.4 Chronic or unspecified gastric ulcer with hemorrhage (principal); E43 Unspecified severe protein-calorie malnutrition; D62 Acute posthemorrhagic anemia; C64.9 Malignant neoplasm of unspecified kidney, except renal pelvis; Z20.822 Contact with and (suspected) exposure to COVID-19; I10 Essential (primary) hypertension; M19.90 Unspecified osteoarthritis, unspecified site; F03.90 Unspecified dementia, unspecified severity, without behavioral disturbance, psychotic disturbance, mood disturbance, and anxiety; Z66 Do not resuscitate; K31.89 Other diseases of stomach and duodenum; D72.829 Elevated white blood cell count, unspecified; K44.9 Diaphragmatic hernia without obstruction or gangrene; Z79.82 Long term (current) use of aspirin; Z88.2 Allergy status to sulfonamides; Z68.29 Body mass index [BMI] 29.0-29.9, adult; Z79.899 Other long term (current) drug therapy

== ENCOUNTER 2021-04-23 10:50 | Observation (INO) | payer OTHER ==
[~2021-04-23] VITALS: Ht 152.4 cm; Wt 68.0 kg
--- NOTE | ~2021-04-23 | CON ---
[address] [address] CONSULTATION Name: ANTHONY CHAVEZ Room: [address] IN .R.#: [id number] Admission: 04/23/21 Attend Phys: Lisbet Pablo Discharge: Date of : 32 Report #: [id number] THIS REPORT FOR: cc: Galen Davis John E. DO Namin, Farid M. MD ~ DATE OF CONSULTATION: 04/24/2021 REASON FOR CONSULTATION: Melena. HISTORY OF PRESENT ILLNESS: This is an 89-year-old female with history of peptic ulcer disease as the patient underwent EGD back in 03/29/2021. This was significant for gastric ulcer, which was biopsied. Biopsies were negative for H. pylori. She has been taking double dose of PPI and she presented to hospital, mainly because she had a dark stool yesterday. Her hemoglobin is stable at 12.5. She denies any nausea, vomiting or hematemesis. The patient also denies any abdominal pain or hematochezia. She is hemodynamically stable. Daughter, who is sitting by the bedside confirmed the patient's claim. PAST MEDICAL HISTORY: Significant for history of peptic ulcer disease, recent gastrointestinal blood loss, hypothyroidism, recurrent UTIs, dyslipidemia, iron deficiency anemia, dementia, hypertension, and arthritis. ALLERGIES: SIGNIFICANT TO SULFA. MEDICATIONS: Please refer to MAR. SOCIAL HISTORY: The patient lives at home. Denies tobacco or alcohol use. Her daughter keeps close contact with her and care for her. FAMILY HISTORY: Noncontributory. PHYSICAL EXAMINATION: VITAL SIGNS: Blood pressure of 137/60, respirations 16, pulse 67, temperature 97.2. LUNGS: Clear. CARDIOVASCULAR: Regular. ABDOMEN: Large, soft, nontender, nondistended. Bowel sounds are positive. NEUROLOGIC: The patient is alert and oriented x3. LABORATORY DATA: Reveal sodium of 143, potassium 3.2, BUN is 16, creatinine 1.0. Lipase is 471, total bilirubin 0.3, alkaline phosphatase 39. Transaminases are within normal limits. Albumin is 2.6. Iron saturation is 15 that is from 03/30. WBC is 5.2 with hemoglobin of 10.3 and platelets of 230. [place] [address] CONSULTATION Name: ANTHONY CHAVEZ Room: [address]#: [id number] Admission: 04/23/21 Attend Phys: Lisbet Pablo Discharge: Date of : 32 Report #: [id number] IMAGING: The patient has evidence of diverticulosis without diverticulitis and retained stool in the colon. ASSESSMENT AND PLAN: The patient with history of peptic ulcer disease who has been off of her NSAIDs and anticoagulation therapy since March. She reports that she has been compliant with Carafate and double dose of PPI. She reports that she had melanotic stool yesterday; therefore, we will keep her n.p.o. after midnight and repeat her EGD tomorrow at 1. The patient and daughter are agreeable with plan. By: [id number] Whelan MD /nt
--- NOTE | ~2021-04-23 | PROC ---
[facility] [address] [place] [address] PROCEDURE REPORT Name: ANTHONY CHAVEZ Room: [address] Sahra Hagen#: [id number] Admission: 04/23/21 Attend Phys: Lisbet Pablo Discharge: 04/25/21 Date of : 32 Report #: [id number] THIS REPORT FOR: cc: Galen Davis John E. DO [facility],Medical Records Staff ~ For Gi report, please see the Provation report in Perceptive 7 content. By: [id number] Records Staff GERALD /ROSE
[~2021-04-23 10:50] MED LIST changes: +ARICEPT10 M1 PO; +CALCIUM500 MG PO; +CARAFATE 1 GM TA1 G1 PO; +DICLOFENAC PO; +FISH OIL 1,0001 EAC9 PO; +LIPITOR 20 MG T20 M1 PO; +MACROBID 100 M100 MG PO; +NAMENDA 10 MG T10 MG PO; +OSTEO BI-FLEX1 EAC1 PO; +PROTONIX40 M2 PO; +SUPER THERAVIT1 EACH PO
[2021-04-23 11:04] VITALS: BP 133/79
[2021-04-23] MEDS ORDERED: FEOSOL325 M1 PO (11:08)
[2021-04-23 12:25] LABS: ABSOLUTE BASOPHILS 0.1 thou/uL (0.0-0.2); ABSOLUTE EOSINOPHILS 0.3 thou/uL (0.0-0.7); ABSOLUTE MONOCYTES 0.5 thou/uL (0.0-1.2); ABSOLUTE NEUTROPHILS 2.7 thou/uL (1.6-8.1); BASOPHILS 0.9 %; EOSINOPHILS 5.3 %; HEMATOCRIT 38.2 % (37.0-47.0); HEMOGLOBIN 12.5 gm/dL (12.0-15.0); LYMPHOCYTES 35.5 %; MCH 29.9 pg (26.0-34.0); MCHC 32.7 g/dL (28.0-37.0); MCV 91.3 fL (80.0-100.0); MONOCYTES 8.9 %; MPV 7.5 fl. (7.2-11.1); NUCLEATED RBCS 0 /100WBC; PLATELET COUNT* 283 thou/uL (150-400); POLYS 49.4 %; RBC 4.18 mil/uL (4.20-5.00); RDW-CV 16.1 % (10.5-14.5); WBC 5.5 thou/uL (4.0-11.0)
[2021-04-23 12:39] LABS: CALCIUM 9.4 mg/dL (8.5-10.1); CREATININE 0.8 mg/dL (0.6-1.3)
[2021-04-23 12:41] LABS: ALBUMIN 3.5 g/dL (3.4-5.0); TOTAL BILIRUBIN 0.2 mg/dL (<0.1-1.0); TOTAL PROTEIN 7.7 g/dL (6.4-8.2)
[2021-04-23 12:45] LABS: POTASSIUM 2.9 mmol/L (3.5-5.1)
[2021-04-23 15:14] LABS: URINE BILIRUBIN NEGATIVE (Negative); URINE BLOOD NEGATIVE (Negative); URINE CLARITY CLEAR; URINE COLOR YELLOW; URINE GLUCOSE-RANDOM NEGATIVE (Negative); URINE KETONES NEGATIVE (Negative); URINE LEUKOCYTES-REFLEX NEGATIVE (Negative); URINE NITRITE-REFLEX NEGATIVE (Negative); URINE PROTEIN NEGATIVE (Negative); URINE UROBILINOGEN 0.2 E.U./dl (0.2-1.0)
--- NOTE | 2021-04-23 15:25 | EKG ---
[place] [address] ELECTROCARDIOGRAM REPORT Name: ANTHONY CHAVEZ Room: [place] [address] ADM IN ..#: [id number] Admission: 04/23/21 Attend Phys: Christopher Albright Discharge: Date of : 31 Date of Service: 04/23/21 1221 Report #: [id number] THIS REPORT FOR: //name// [facility] ED Test Date: 2021-04-23 Test Time: 12:21:22 Pat Name: ANTHONY CHAVEZ Department: Room: 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 : 1930 Requested By: Oswaldo Khan Order Number: [id number] MD: Ramon Peres Measurements Intervals [place] Rate: 67 P: 26 [place]: 165 QRS: -30 QRSD: 139 T: 114 QT: 467 QTc: 493 Interpretive Statements Sinus rhythm Left bundle branch block Compared to ECG 03/29/2021 13:37:11 Ventricular premature complex(es) no longer present Electronically Signed On 04-23-2021 15:25:21 ELEMENTARY SCHOOL LIBRARIAN by Ramon Peres [email or web address] <ELECTRONICALLY SIGNED> By: Ramon Peres MD, FACC 04/23/21 1525 1221 1221 Ramon Peres MD, FAC /EPI
[2021-04-23 16:30] VITALS: BP 122/65
[2021-04-23 19:45] VITALS: BP 94/41
[2021-04-23 20:41] VITALS: BP 104/54
[2021-04-23 21:00] VITALS: BP 101/47
[2021-04-24] VITALS: BP 123/54
[2021-04-24 04:00] VITALS: BP 126/65
[2021-04-24 06:54] LABS: HEMATOCRIT 32.1 % (37.0-47.0); MCH 29.7 pg (26.0-34.0); MCHC 32.1 g/dL (28.0-37.0); MCV 92.6 fL (80.0-100.0); MPV 7.4 fl. (7.2-11.1); RBC 3.47 mil/uL (4.20-5.00); RDW-CV 15.8 % (10.5-14.5); WBC 5.2 thou/uL (4.0-11.0)
[2021-04-24 06:57] LABS: HEMOGLOBIN 10.3 gm/dL (12.0-15.0)
[2021-04-24 07:25] LABS: ALBUMIN 2.6 g/dL (3.4-5.0); POTASSIUM 3.2 mmol/L (3.5-5.1); TOTAL BILIRUBIN 0.3 mg/dL (<0.1-1.0); TOTAL PROTEIN 5.7 g/dL (6.4-8.2)
[2021-04-24 08:00] VITALS: BP 137/60
[2021-04-24 12:07] VITALS: BP 109/46
[2021-04-24 16:05] VITALS: BP 101/65
[2021-04-24 19:30] VITALS: BP 124/61
[2021-04-25] VITALS: BP 88/49
[2021-04-25 04:00] VITALS: BP 155/57
[2021-04-25 04:55] LABS: ABSOLUTE EOSINOPHILS 0.3 thou/uL (0.0-0.7); ABSOLUTE LYMPHOCYTES 1.8 thou/uL (0.8-5.3); ABSOLUTE MONOCYTES 0.4 thou/uL (0.0-1.2); ABSOLUTE NEUTROPHILS 3.3 thou/uL (1.6-8.1); BASOPHILS 0.6 %; EOSINOPHILS 5.4 %; HEMATOCRIT 30.5 % (37.0-47.0); LYMPHOCYTES 30.4 %; MCH 29.9 pg (26.0-34.0); MCHC 32.7 g/dL (28.0-37.0); MCV 91.3 fL (80.0-100.0); MPV 7.9 fl. (7.2-11.1); NUCLEATED RBCS 0 /100WBC; PLATELET COUNT* 207 thou/uL (150-400); POLYS 56.6 %; RBC 3.34 mil/uL (4.20-5.00); RDW-CV 15.9 % (10.5-14.5); WBC 5.8 thou/uL (4.0-11.0)
[2021-04-25 12:30] VITALS: BP 164/74
[2021-04-25 14:19] VITALS: BP 164/74
[2021-04-25 14:41] VITALS: BP 164/74
[2021-04-25 15:05] VITALS: BP 164/74
--- NOTE | 2021-04-26 18:06 | PATH ---
[address] [address] PATHOLOGY RPT PROCEDURE Name: ANTHONY CHAVEZ Room: [address] Sahra Hagen#: [id number] Admission: 04/23/21 Date of : 32 Discharge: 04/25/21 Report #: [id number] Path Case #: [id number] [facility] Accession Number: [id number] . 01 Material submitted: . 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 01 Clinical history: . EGD IN OR . 02 Diagnosis: Esophageal biopsy at 36 cm: - Benign esophageal and Khan's type mucosa with moderate chronic inflammation typical of reflux, negative for dysplasia. . (MAHENDRA:mml; 04/26/2021) [facility] 04/26/2021 [facility] Local . 02 Electronically signed: . Braulio Pal MD, Pathologist NPI- [id number] . 01 Gross description: . The specimen is received in formalin, labeled "Brendon, Anthony, esophageal biopsy at 36 cm". Received is a single segment of pale fink tissue measuring 0.5 cm in maximum dimensions. The specimen is entirely submitted in cassette A1. ([facility]; 04/25/2021) NRI/NRI 04/25/2021 2158 Local . 02 Pathologist provided ICD-10: K22.70, K20.90 . 02 CPT . 273775 Specimen Comment: A courtesy copy of this report has been sent to [phone] Specimen Comment: [phone], Specimen Comment: Report sent to , DR METCALF / DR ZAPATA Performed at: 01 [facility] [address], [place], [place] [id number] MD Renzo Kohli MD Phone: [phone] Performed at: [address] [facility] [address], [place], [place] [id number] MD Braulio Pal MD Phone: [phone]
== END 2021-04-25 14:45 | disposition home or self-care (01) ==
LOC: M.ERS 10:50 → M.TBA-ER 12:49 → M.ORTHSURG 12:49
PROVIDERS: Family Medicine; Internal Medicine Gastroenterology; ADMIT Internal Medicine; ATTEND Internal Medicine
DX: K44.9 Diaphragmatic hernia without obstruction or gangrene (principal); K22.70 Barrett's esophagus without dysplasia; K25.9 Gastric ulcer, unspecified as acute or chronic, without hemorrhage or perforation; Z20.822 Contact with and (suspected) exposure to COVID-19; E87.6 Hypokalemia; D64.9 Anemia, unspecified; G43.909 Migraine, unspecified, not intractable, without status migrainosus; I10 Essential (primary) hypertension; E78.5 Hyperlipidemia, unspecified; K25.3 Acute gastric ulcer without hemorrhage or perforation; Z79.899 Other long term (current) drug therapy